=== PATIENT | female | born 1950 | race Caucasian/White ===

== ENCOUNTER 2018-10-27 07:32 | Outpatient (CLI) | payer OTHER | END 2018-10-27 08:00 | disposition home or self-care (01) | LOC: NUCLEAR 07:32 | DX: I11.9 Hypertensive heart disease without heart failure (principal); R07.2 Precordial pain; R00.2 Palpitations; E78.2 Mixed hyperlipidemia; E03.9 Hypothyroidism, unspecified; R00.1 Bradycardia, unspecified; R07.89 Other chest pain | CPT/HCPCS: 78452; 93017; A9500; J0153 ==

== ENCOUNTER → 2020-02-05 | Outpatient (CLI) | payer OTHER ==
[~2020-02-05] MED LIST: CARDUR PO; HYZAAR 100-12.1 EACH PO; KEFLEX500 MG PO; MACROBID 100 M100 MG PO; SIMVASTAT PO; SYNTHROID100 MCG PO
== END | disposition home or self-care (01) ==
LOC: RAD 11:34
PROVIDERS: ATTEND Specialist
DX: D24.1 Benign neoplasm of right breast (principal); I10 Essential (primary) hypertension

== ENCOUNTER 2020-02-15 06:47 | Day surgery (SDC) | payer OTHER | END 2020-02-15 14:00 | disposition home or self-care (01) | LOC: CIR.AMB 06:47 | PROVIDERS: ATTEND Specialist | DX: D24.1 Benign neoplasm of right breast (principal) ==

== ENCOUNTER 2020-11-18 11:05 | Outpatient (CLI) | payer OTHER | END 2020-11-18 11:29 | disposition home or self-care (01) | LOC: MAMO-SONO 11:05 | PROVIDERS: ATTEND Specialist | DX: N63.10 Unspecified lump in the right breast, unspecified quadrant (principal); N63.20 Unspecified lump in the left breast, unspecified quadrant ==

== ENCOUNTER 2021-12-04 06:00 | Day surgery (SDC) | payer OTHER ==
[~2021-12-04 06:00] MED LIST changes: +ORENCIA50 MG/0.4; +XANAX1 MG PO
[2021-12-04] MEDS ORDERED: MIRALAX17 GM PO (09:26)
== END 2021-12-04 11:05 | disposition home or self-care (01) ==
LOC: CIR.AMB 06:00
PROVIDERS: ATTEND Surgery
DX: K42.9 Umbilical hernia without obstruction or gangrene (principal); K43.0 Incisional hernia with obstruction, without gangrene; Z88.8 Allergy status to other drugs, medicaments and biological substances; Z88.2 Allergy status to sulfonamides; I10 Essential (primary) hypertension; E78.00 Pure hypercholesterolemia, unspecified; E04.2 Nontoxic multinodular goiter; F32.A Depression, unspecified